=== PATIENT | female | born 1950 | race Caucasian/White ===

== ENCOUNTER 2016-12-12 17:34 | Emergency (ER) | payer MEDICARE, OTHER ==
--- NOTE | ~2016-12-12 | ER ---
PATIENT'S NAME: OSCAR KEARNEY [facility] AGE: 66 Y [address] ROOM: [place] [address] LOCATION: [facility] ADMIT DATE: 12/12/2016 ER/Outpatient Report DISCHARGE DATE: 12/12/2016 FAMILY PHYSICIAN: Physician, Unknown ATTENDING PHYSICIAN: Maximino Pickard TIME SEEN: 1715 hours. HISTORY OF PRESENT ILLNESS: The patient is a 66-year-old female from [place], [place], the patient was here in the [place] area, she [facility] [employer], and suddenly felt short of breath. The patient was told by one of the employees at [facility] that they had done some spraying for insects, which the patient reports that she has had some previous allergic reactions from. The patient did use her albuterol inhaler and then was able to drive herself to the emergency room. She denied any actual chest pain; however, she does have a history of coronary artery disease. ALLERGIES: INCLUDE TOPAMAX AND A CHOLESTEROL MEDICATION THAT SHE WAS NOT SURE OF. CURRENT MEDICATIONS: Include: 1. Omeprazole. 2. Chas aspirin. 3. Duloxetine. 4. Hydrochloride. 5. Metformin. 6. Thyroxine. 7. Lisinopril. PAST MEDICAL HISTORY: Includes some reactive airway, hypothyroidism, hypertension, coronary artery disease, and congestive heart failure. SURGERIES: Include 2 vessels CABG and cholecystectomy. SOCIAL HISTORY: Nonsmoker. Denies alcohol use. , present. REVIEW OF SYSTEMS: GENERAL: No fevers or chills today. HEAD/EENT: No complaints of headache, sore throat, or swelling of her tongue. PATIENT'S NAME: OSCAR KEARNEY [facility] AGE: 66 Y [address] ROOM: [place] [address] LOCATION: ED ADMIT DATE: 12/12/2016 ER/Outpatient Report DISCHARGE DATE: 12/12/2016 FAMILY PHYSICIAN: Physician, Unknown ATTENDING PHYSICIAN: Maximino Pickard RESPIRATORY: Shortness of breath. No hemoptysis. CARDIOVASCULAR: Denies any chest pain or palpitations. GASTROINTESTINAL: No vomiting. No abdominal pain. SKIN: No hives or rash. PHYSICAL EXAMINATION: VITAL SIGNS: On exam, her temp is 96.7, her respiratory rate was 28, she appeared hyperventilating, pulse was 84, and her O2 sats were 100%. GENERAL APPEARANCE: White female. She is alert, but anxious, initially appeared hyperventilating. HEAD: Normocephalic. EYES: PERRLA. No icterus. NOSE: Septum midline. MOUTH: Oral membranes were moist. There was no oral swelling. NECK: Supple. No adenopathy. LUNGS: Peripherally sounded clear. No presence of rales. HEART: Rhythm regular. No murmurs. ABDOMEN: Soft, nontender. EXTREMITIES: No pedal edema. SKIN: There was no presence of hives. DIAGNOSTIC DATA: EKG showed just normal sinus rhythm. No ischemic changes. Her cardiac enzymes were within normal ranges. CBC: White count 10.2, hemoglobin 11. Her chest x-ray shows a previous open heart surgery. Heart size appeared maybe slightly enlarged, but no significant infiltrates. ASSESSMENT: 1. Acute shortness of breath, possibly secondary to exposure to insecticide. 2. Coronary artery disease, previous bypass graft surgery. 3. Hypothyroidism. 4. Hypertension. 5. Hyperventilation. PLAN: The patient was observed for a good hour in the emergency room, her symptoms improved, the patient is discharged home, and recommend return to emergency room if she has any further concerns. LORAINE AVALOS FOR DO GINETTE KAYE/viky PATIENT'S NAME: OSCAR KEARNEY [facility] AGE: 66 Y [address] ROOM: [place] [address] LOCATION: [facility] ADMIT DATE: 12/12/2016 ER/Outpatient Report DISCHARGE DATE: 12/12/2016 FAMILY PHYSICIAN: Physician, Unknown ATTENDING PHYSICIAN: Maximino Pickard /[id number] d: 12/13/16 0119 t: 12/17/16 1024, OUTPATIENT REPORT
[2016-12-12 18:36] LABS: BASOPHIL # 0.1 K/uL (0.0-0.2); BASOPHIL % 0.6 %; EOSINOPHIL # 0.2 K/uL (0.0-0.5); EOSINOPHIL % 2.3 %; HEMATOCRIT 36.9 % (33.0-46.0); IMMATURE GRANULOCYTE % 0.3 %; LYMPHOCYTE # 4.3 K/uL (0.8-4.0); LYMPHOCYTE % 41.6 %; MCHC 29.8 gm/dL (32.0-36.5); MONOCYTE # 0.6 K/uL (0.0-1.0); MONOCYTE % 5.8 %; MPV 9.5 fl (9.4-12.4); NEUTROPHIL # (ANC) 5.1 K/uL (1.8-7.8); NEUTROPHIL % 49.4 %; NRBC % 0 /100WBC (0-0.00); PLATELET COUNT 256 K/uL (150-450); RBC 4.79 M/uL (3.50-5.50); RDW-CV 16.4 % (11.9-14.6); WBC 10.2 K/uL (4.0-11.0)
[2016-12-12 18:46] LABS: INR - (THERAPEUTIC) 1.02 (0.92-1.07); PROTIME 10.7 SECONDS (9.8-11.4); PTT 24 SECONDS (25-32)
[2016-12-12 18:55] LABS: ALBUMIN 3.4 gm/dL (3.5-5.0); ALK PHOS 81 IU/L (33-138); ALT 23 IU/L (12-78); ANION GAP 16.5 (10.0-19.0); AST 23 IU/L (10-40); BLOOD UREA NITROGEN 12 mg/dL (6-24); CALCIUM 8.8 mg/dL (8.5-10.5); CHLORIDE 106 mMol/L (96-110); CO2 21 mMol/L (22-32); CPK 88 IU/L (21-215); ESTIMATED GFR (MDRD EQUATION) 56; MAGNESIUM 1.6 mg/dL (1.8-2.6); POTASSIUM 3.5 mMol/L (3.7-5.1); SODIUM 140 mMol/L (135-145); TOTAL BILIRUBIN 0.4 mg/dL (0.0-1.5); TOTAL PROTEIN 7.2 g/dL (6.0-8.4)
== END 2016-12-12 19:09 | disposition disaster alternative care site (69) ==
LOC: GMED 17:34
PROVIDERS: Emergency Medicine
DX: R06.02 Shortness of breath (principal); I25.10 Atherosclerotic heart disease of native coronary artery without angina pectoris; I11.0 Hypertensive heart disease with heart failure; I50.9 Heart failure, unspecified; E03.9 Hypothyroidism, unspecified; R06.4 Hyperventilation; Z88.8 Allergy status to other drugs, medicaments and biological substances; Z79.82 Long term (current) use of aspirin; Z79.899 Other long term (current) drug therapy